=== PATIENT | male | born 1990 | race African-American/Black ===

== ENCOUNTER 2017-03-11 20:32 | Emergency (ER) | payer OTHER ==
[~2017-03-11] VITALS: Ht 180.3 cm; Wt 79.4 kg
[2017-03-11 21:01] LABS: ABSOLUTE NEUTROPHILS 3.4 thou/uL (1.4-8.2); BASOPHILS 0.9 % (0.0-2.0); EOSINOPHILS 0.6 % (0.0-3.0); HEMATOCRIT 43.3 % (42.0-52.0); HEMOGLOBIN 14.6 gm/dL (14.0-18.0); LYMPHOCYTES 34.7 % (24.0-44.0); MCH 28.7 pg (26.0-34.0); MCHC 33.8 g/dL (28.0-37.0); MCV 84.8 fL (80.0-100.0); MONOCYTES 9.9 % (1.0-8.0); PLATELET COUNT 210 thou/uL (150-400); POLYS 53.9 % (36.0-66.0); RDW 13.8 % (10.5-14.5); WBC 6.3 thou/uL (4.0-11.0)
[2017-03-11 21:05] LABS: ANION GAP 6 mmol/L (7-16); BUN 14 mg/dL (7-18); CALCIUM 9.3 mg/dL (8.5-10.1); CHLORIDE 106 mmol/L (98-107); CO2 28 mmol/L (21-32); GLUCOSE 101 mg/dL (74-106); SODIUM 140 mmol/L (136-145)
[2017-03-11 21:07] LABS: MANUAL DIFF NO
[2017-03-11 21:11] LABS: ACETAMINOPHEN < 2 ug/mL (10-30); ALBUMIN 3.9 g/dL (3.4-5.0); ALKALINE PHOSPHATASE 54 U/L (46-116); SALICYLATE < 2.8 mg/dL (2.8-20.0); SGOT 15 U/L (15-37); SGPT 17 U/L (30-65); TOTAL BILIRUBIN 0.3 mg/dL (<0.1-1.0); TOTAL PROTEIN 7.7 g/dL (6.4-8.2)
[2017-03-11 22:41] LABS: URINE BILIRUBIN NEGATIVE (Negative); URINE BLOOD NEGATIVE (Negative); URINE COLOR YELLOW; URINE GLUCOSE-RANDOM* NEGATIVE (Negative); URINE KETONES NEGATIVE (Negative); URINE LEUKOCYTES-REFLEX NEGATIVE (Negative); URINE PROTEIN (DIPSTICK) NEGATIVE (Negative); URINE UROBILINOGEN 0.2 E.U./dl (0.2-1.0)
[2017-03-11 22:49] LABS: AMP/METHAMP Negative (Negative); BARBITURATES Negative (Negative); BENZODIAZEPINES Negative (Negative); COCAINE Negative (Negative); METHADONE Negative (Negative); OPIATES Negative (Negative); PCP Negative (Negative); THC Negative (Negative)
[2017-03-11 23:09] VITALS: BP 111/64
== END 2017-03-11 23:10 | disposition home or self-care (01) ==
LOC: ER 20:32
PROVIDERS: Emergency Medicine
DX: R45.1 Restlessness and agitation (principal); R62.50 Unspecified lack of expected normal physiological development in childhood